=== PATIENT | female | born 1990 | race Caucasian/White ===

== ENCOUNTER 2024-04-15 10:29 | Inpatient (IN) | payer OTHER ==
[2024-04-15] VITALS (15 sets, daily range): BP systolic 83–114; BP diastolic 43–95; PULSE 53–68; TEMP 97.9–98.1
[~2024-04-15] VITALS: Ht 170.3 cm; Wt 91.8 kg
--- NOTE | 2024-04-15 10:00 | NUR ---
PATIENT AMBULATES ON TO UNIT AND TO ROOM. PATIENT ORIENTED TO ROOM. PATIENT DENIES CTX, LEAKING OF FLUID OR BLEEDING. PATIENT REPORTS BABY IS MOVING NORMALLY. EFM AND TOCO INITIATED. SPO2 MONITOR INTIATED.
[~2024-04-15 10:29] MED LIST: LR 1,000 ML IV SCH; Ondansetron 4 MG/2 ML VIAL IV SCH
[2024-04-15 11:17] LABS: BASO % 0.4 % (0.0-2.0); EOS % 0.5 % (0.0-4.0); GRAN # 3.9 K/mm3 (1.4-6.5); GRAN % 70.5 % (42.2-75.2); HEMATOCRIT 40.6 % (37.0-47.0); HEMOGLOBIN 13.7 g/dl (12.5-16.0); LYMPH # 1.1 K/mm3 (1.2-3.4); LYMPH % 20.9 % (20.0-51.0); MEAN CELL VOLUME 90 fl (80.0-100.0); MEAN CORPUSCULAR HEMOGLOBIN 30 pg (27-31); MEAN CORPUSCULAR HGB CONC 34 g/dl (33.0-37.0); MEAN PLATELET VOLUME 9.7 fl (7.4-10.4); MONO # 0.4 K/mm3 (0.1-0.6); MONO % 7.3 % (1.7-9.3); PLATELET COUNT 226 K/mm3 (130-400); RED BLOOD COUNT 4.53 M/mm3 (4.10-5.30); REDCELL DISTRIBUTION WIDTH-CV 13.5 % (11.5-14.5)
[2024-04-15] MEDS ORDERED: PRENATAL TABLET PO (11:25)
[2024-04-15] MEDS ORDERED: PRILOTC (11:27)
--- NOTE | 2024-04-15 11:29 | NUR ---
PATIENT'S CESRAEAN SECTION DELAYED DUE TO HIGH ACUITY PATIENT NEEDING OPERATING ROOM. PATIENT'S PROCEDURE THEN RESCHEDULED FOR 1700.
[2024-04-15] MEDS ORDERED: dexAMETHasone 10 MG/ML VIAL ONE (13:37)
[2024-04-15] MEDS ORDERED: NS 10 ML IV ONE (13:37)
[2024-04-15] MEDS ORDERED: Ketorolac 30 MG/ML VIAL ONE (13:37)
[2024-04-15] MEDS ORDERED: Ondansetron 4 MG/2 ML VIAL ONE (13:37)
[2024-04-15] MEDS ORDERED: Oxytocin 10 UNITS/ML VIAL ONE (13:37)
--- NOTE | 2024-04-15 16:55 | NUR ---
PATIENT AMBULATING BACK TO OPERATING ROOM FOR SECTION.
[2024-04-15] MEDS ORDERED: LR 1,000 ML IV ONE (17:39)
[2024-04-15] MEDS ORDERED: Tranexamic Acid 1,000 MG/10 ML VIAL ONE (17:42)
[2024-04-15] MEDS ORDERED: Ondansetron 4 MG/2 ML VIAL IV PRN (18:15)
[2024-04-15] MEDS ORDERED: Acetaminophen 500 MG TAB PO SCH (18:15)
[2024-04-15] MEDS ORDERED: Loratadine 10 MG TAB PO PRN (18:15)
[2024-04-15] MEDS ORDERED: Measles/Mumps/Rubella Virus Vaccine Live w Diluent 0.5 ML VIAL SQ SCH (18:15)
[2024-04-15] MEDS ORDERED: Morphine 4 MG/ML VIAL IV PRN (18:15)
[2024-04-15] MEDS ORDERED: LR 1,000 ML IV PRN (18:15)
[2024-04-15] MEDS ORDERED: Naloxone 0.4 MG/ML VIAL IV PRN (18:15)
[2024-04-15] MEDS ORDERED: Magnes Hydrox (MOM) 80 MG/ML 30 ML CUP PO PRN (18:15)
[2024-04-15] MEDS ORDERED: oxyCODONE 5 MG TAB PO PRN (18:15)
--- NOTE | 2024-04-15 20:00 | NUR ---
1999 IV INF AND TO INT. PERICARE DONE AND PAD CHANGED. UNABLE TO MOVE LEGS AT ALL. SYEDA WELL.
[2024-04-15] MEDS ORDERED: traZODone 50 MG TAB PO PRN (21:00)
[2024-04-15] MEDS ORDERED: Rho(D) Imm Globulin 1,500 UNITS (300 MCG)/2 ML SYRINGE IV\\IM SCH (22:15)
[2024-04-16] VITALS: BP 99/46; PULSE 59; TEMP 97.8
[2024-04-16] MEDS ORDERED: Ibuprofen 600 MG TAB PO SCH (00:13)
[2024-04-16 04:00] VITALS: BP 105/45; PULSE 61; TEMP 97.8
[2024-04-16 07:56] VITALS: BP 108/57; PULSE 59; TEMP 98.4
[2024-04-16] MEDS ORDERED: Sennosides/Docusate 8.6-50 MG TAB PO SCH (08:00)
[2024-04-16] MEDS ORDERED: ROXICODONE 55 MG/TAB PO (09:15)
[2024-04-16] MEDS ORDERED: IBU600 MG PO (09:15)
--- NOTE | 2024-04-16 09:54 | NUR ---
Initial visit attempt; Patient sleeping. Patient Information Coordinator left card offering Congratulations and God's blessings for the of her son. Patient Information Coordinator thanked patient for choosing [facility].
[2024-04-16 12:00] VITALS: BP 105/49; PULSE 73; TEMP 98
[2024-04-16 16:30] VITALS: BP 110/63; PULSE 78; TEMP 98
[2024-04-16 19:00] VITALS: BP 112/62; PULSE 66; TEMP 98.4
[2024-04-17 07:00] VITALS: BP 103/68; PULSE 69; TEMP 98.1
== END 2024-04-17 13:10 | disposition home or self-care (01) | DRG 788 ==
LOC: OB
PROVIDERS: ADMIT Obstetrics & Gynecology
PROC: 10D00Z1 Extraction of Products of Conception, Low, Open Approach (ICD-10-PCS; principal; 2024-04-15)
PROC: 0UB00ZZ Excision of Right Ovary, Open Approach (ICD-10-PCS; 2024-04-15)
DX: O34.211 Maternal care for low transverse scar from previous cesarean delivery (principal); Z3A.39 39 weeks gestation of pregnancy; Z37.0 Single live birth
CPT/HCPCS: J0665; J0690; J1100; J1885; J2405; J2590; J2791; J7120